=== PATIENT | female | born 1960 | race Caucasian/White ===

== ENCOUNTER → 2016-05-08 | Outpatient (CLI) | payer OTHER ==
[~2016-05-08] MED LIST: ALLEGRA30 MG PO; ASPIRIN E.C. 8181 MG PO; B COMPLEX1 TA2 PO; CEPHALEXIN500 M1 PO; CINNAMON500 MG; CO Q-1030 M1; DUO-KAPS1 CAP PO; LEVOTHYROXIN0.075 MG PO; LEVOTHYROXINE0.05 MG PO; NASONEX SPRAY; NATURAL E400 IU PO; NORCO 325 MG-51 TAB PO; SINGULAIR10 MG PO
== END ==
LOC: LAB 16:36
DX: E03.9 Hypothyroidism, unspecified (principal)

== ENCOUNTER → 2016-05-20 | Outpatient (CLI) | payer OTHER | LOC: MAMMO 15:52 | DX: Z12.31 Encounter for screening mammogram for malignant neoplasm of breast (principal) | CPT/HCPCS: G0202 ==

== ENCOUNTER → 2017-04-16 | Outpatient (CLI) | payer OTHER ==
[2015-03-06 18:20] VITALS: BP 162/88
[2017-04-16 08:18] LABS: HEMATOCRIT 46.6 % (37.0-47.0); HEMOGLOBIN 15.6 g/dL (12.5-16.0); MEAN PLATELET VOLUME 10.7 fl (7.4-10.4); RED BLOOD COUNT 5.25 M/mm3 (4.10-5.30); RED CELL DISTRIBUTION WIDTH 14.1 % (11.5-14.5); WHITE BLOOD COUNT 6.1 K/mm3 (4.8-10.8)
[2017-04-16 08:32] LABS: ALBUMIN 4.3 g/dL (3.5-5.0); BUN/CREATININE RATIO 23.2 (6.0-26.0); CALCIUM 9.9 mg/dL (8.4-10.2); POTASSIUM 3.9 mmol/L (3.6-5.0); TOTAL BILIRUBIN 0.8 mg/dL (0.2-1.3); TOTAL PROTEIN 7.5 g/dL (6.3-8.2)
== END ==
LOC: LAB 08:05
PROVIDERS: Family Medicine
DX: E66.9 Obesity, unspecified (principal)

== ENCOUNTER → 2017-04-29 | Outpatient (CLI) | payer OTHER ==
[2015-03-06 18:20] VITALS: BP 162/88
== END ==
LOC: MAMMO 13:36 → RAD 13:45
DX: Z12.31 Encounter for screening mammogram for malignant neoplasm of breast (principal)

== ENCOUNTER → 2018-03-30 | Outpatient (CLI) | payer OTHER ==
[2015-03-06 18:20] VITALS: BP 162/88
[2018-03-30 17:09] LABS: EOS # 0.3 (0.04-0.40); HEMATOCRIT 44.6 % (37.0-47.0); HEMOGLOBIN 14.9 g/dL (12.5-16.0); MEAN CELL VOLUME 87 fl (78-100); MEAN CORPUSCULAR HEMOGLOBIN 29 pg (27-31); MEAN CORPUSCULAR HGB CONC 33 g/dL (33-37); MEAN PLATELET VOLUME 10.6 fl (7.4-10.4); MONO # 0.6 (0.20-0.80); NEU # 3.7 (1.40-6.50); PLATELET COUNT 203 K/mm3 (130-400); RED BLOOD COUNT 5.13 M/mm3 (4.10-5.30); RED CELL DISTRIBUTION WIDTH 13.9 % (11.5-14.5); WHITE BLOOD COUNT 6.6 K/mm3 (4.8-10.8)
[2018-03-30 19:35] LABS: ALBUMIN 4.8 g/dL (3.5-5.0); CALCIUM 9.5 mg/dL (8.4-10.2); POTASSIUM 3.3 mmol/L (3.6-5.0); TOTAL BILIRUBIN 0.4 mg/dL (0.2-1.3); TOTAL PROTEIN 7.7 g/dL (6.3-8.2)
== END ==
LOC: LAB 16:37
PROVIDERS: Family Medicine
DX: Z01.419 Encounter for gynecological examination (general) (routine) without abnormal findings (principal); E07.9 Disorder of thyroid, unspecified

== ENCOUNTER → 2018-06-04 | Outpatient (CLI) | payer OTHER ==
[2015-03-06 18:20] VITALS: BP 162/88
== END ==
LOC: LAB 12:54
DX: R30.0 Dysuria (principal)

== ENCOUNTER → 2018-11-03 | Outpatient (CLI) | payer OTHER ==
[2015-03-06 18:20] VITALS: BP 162/88
== END ==
LOC: MAMMO 12:47
DX: Z12.31 Encounter for screening mammogram for malignant neoplasm of breast (principal)

== ENCOUNTER → 2019-10-03 | Outpatient (CLI) | payer OTHER ==
[2015-03-06 18:20] VITALS: BP 162/88
== END ==
LOC: RAD 14:46
DX: R05 Cough (principal); R30.0 Dysuria

== ENCOUNTER → 2019-10-05 | Outpatient (CLI) | payer OTHER ==
[2015-03-06 18:20] VITALS: BP 162/88
== END ==
LOC: LAB 10:18
DX: U07.1 COVID-19 (principal); M79.10 Myalgia, unspecified site

== ENCOUNTER → 2019-11-29 | Outpatient (CLI) | payer OTHER ==
[2015-03-06 18:20] VITALS: BP 162/88
[2019-12-01 06:19] LABS: ALTERNARIA TENUIS CNT <0.10 kU/L (()); ASPERGILLUS FUMIGATUS AL COUNT <0.10 kU/L (()); AUREOBASIDIUM PULLULANS CNT <0.10 kU/L (()); BAKERS YEAST ALLERGEN COUNT <0.10 kU/L (()); CANDIDA ALBICANS ALLERGN COUNT <0.10 kU/L (()); CLADOSPORIUM ALLERGEN COUNT <0.10 kU/L (()); CORN ALLERGEN COUNT <0.10 kU/L (()); EGG WHITE ALLERGEN COUNT <0.10 kU/L (()); EPICOCCUM PURPURANCEN AL COUNT <0.10 kU/L (()); FUSARIUM MONILIFORME ALL COUNT <0.10 kU/L (()); MILK ALLERGEN COUNT <0.10 kU/L (()); MUCOR RACEMOSUS ALLERGEN COUNT <0.10 kU/L (()); ORANGE ALLERGEN COUNT <0.10 kU/L (()); PEANUT ALLERGEN COUNT <0.10 kU/L (()); PENICILLIUM NOTATUM ALLR COUNT <0.10 kU/L (()); PHOMA BETAE ALLERGEN COUNT <0.10 kU/L (()); RICE ALLERGEN COUNT <0.10 kU/L (()); SOYBEAN ALLERGEN COUNT <0.10 kU/L (()); STEMPHYLIUM BOTRYOSUM AL COUNT <0.10 kU/L (()); STRAWBERRY ALLERGEN COUNT <0.10 kU/L (()); TOMATO ALLERGEN COUNT <0.10 kU/L (()); WHEAT ALLERGEN COUNT <0.10 kU/L (())
== END ==
LOC: LAB 14:28
PROVIDERS: Family Medicine
DX: T78.49XD Other allergy, subsequent encounter (principal)

== ENCOUNTER → 2019-11-30 | Outpatient (CLI) | payer OTHER ==
[2015-03-06 18:20] VITALS: BP 162/88
== END ==
LOC: MAMMO 13:38
DX: Z12.31 Encounter for screening mammogram for malignant neoplasm of breast (principal)

== ENCOUNTER → 2019-12-21 | Outpatient (CLI) | payer OTHER ==
[2015-03-06 18:20] VITALS: BP 162/88
[2019-12-21 17:18] LABS: EOS # 0.3 (0.04-0.40); EOS % 4.1 % (1.0-5.0); HEMATOCRIT 46.4 % (37.0-47.0); HEMOGLOBIN 15.1 g/dL (12.5-16.0); LYMPH# 1.9 (1.50-4.00); MEAN CELL VOLUME 90 fl (78-100); MEAN CORPUSCULAR HEMOGLOBIN 29 pg (27-31); MEAN CORPUSCULAR HGB CONC 33 g/dL (33-37); MEAN PLATELET VOLUME 10.3 fl (7.4-10.4); MONO # 0.8 (0.20-0.80); NEU # 4.3 (1.40-6.50); PLATELET COUNT 213 K/mm3 (130-400); RED BLOOD COUNT 5.15 M/mm3 (4.10-5.30); RED CELL DISTRIBUTION WIDTH 14.4 % (11.5-14.5); WHITE BLOOD COUNT 7.3 K/mm3 (4.8-10.8)
[2019-12-21 17:23] LABS: POTASSIUM 3.8 mmol/L (3.5-5.1)
[2019-12-21 17:24] LABS: CALCIUM 9.6 mg/dL (8.3-10.5)
== END ==
LOC: LAB 17:02
PROVIDERS: Internal Medicine
DX: Z01.419 Encounter for gynecological examination (general) (routine) without abnormal findings (principal); E78.5 Hyperlipidemia, unspecified; E07.9 Disorder of thyroid, unspecified; I10 Essential (primary) hypertension; R73.9 Hyperglycemia, unspecified

== ENCOUNTER → 2020-10-30 | Outpatient (CLI) | payer OTHER ==
[2020-10-30 18:13] LABS: BASO # 0.03 (0.02-0.10); EOS # 0.49 (0.04-0.40); EOS % 6.6 % (1.0-5.0); HEMATOCRIT 44.5 % (37.0-47.0); HEMOGLOBIN 14.5 g/dL (12.5-16.0); LYMPH# 1.37 (1.50-4.00); MEAN CELL VOLUME 88 fl (78-100); MEAN CORPUSCULAR HEMOGLOBIN 29 pg (27-31); MEAN CORPUSCULAR HGB CONC 33 g/dL (33-37); MEAN PLATELET VOLUME 10.1 fl (7.4-10.4); MONO # 0.63 (0.20-0.80); NEU # 4.85 (1.40-6.50); PLATELET COUNT 229 K/mm3 (130-400); RED BLOOD COUNT 5.05 M/mm3 (4.10-5.30); RED CELL DISTRIBUTION WIDTH 14.2 % (11.5-14.5); WHITE BLOOD COUNT 7.4 K/mm3 (4.8-10.8)
[2020-10-30 18:22] LABS: ALBUMIN 4.5 g/dL (3.5-5.0)
[2020-10-30 18:25] LABS: TOTAL PROTEIN 7.5 g/dL (6.4-8.3)
[2020-10-30 18:27] LABS: TOTAL BILIRUBIN 0.4 mg/dL (0.2-1.2)
== END ==
LOC: LAB 17:58
PROVIDERS: Nurse Practitioner
DX: M79.671 Pain in right foot (principal); R60.0 Localized edema

== ENCOUNTER → 2020-11-01 | Outpatient (CLI) | payer OTHER | LOC: RAD 14:22 | DX: M19.071 Primary osteoarthritis, right ankle and foot (principal) ==

== ENCOUNTER → 2020-11-08 | Outpatient (CLI) | payer OTHER | LOC: RAD 08:54 | DX: R60.0 Localized edema (principal) ==

== ENCOUNTER → 2021-02-08 | Outpatient (CLI) | payer OTHER ==
[2021-02-08 16:06] LABS: BASO # 0.04 K/mm3 (0.02-0.10); EOS # 0.38 K/mm3 (0.04-0.40); EOS % 4.6 % (1.0-5.0); HEMATOCRIT 49.6 % (37.0-47.0); LYMPH# 1.34 K/mm3 (1.50-4.00); MEAN CELL VOLUME 87 fl (78-100); MEAN CORPUSCULAR HEMOGLOBIN 28 pg (27-31); MEAN CORPUSCULAR HGB CONC 32 g/dL (33-37); MONO # 0.66 K/mm3 (0.20-0.80); NEU # 5.92 K/mm3 (1.40-6.50); PLATELET COUNT 208 K/mm3 (130-400); RED BLOOD COUNT 5.72 M/mm3 (4.10-5.30); RED CELL DISTRIBUTION WIDTH 15.1 % (11.5-14.5); WHITE BLOOD COUNT 8.4 K/mm3 (4.8-10.8)
[2021-02-08 16:13] LABS: ALBUMIN 4.4 g/dL (3.5-5.0); POTASSIUM 3.5 mmol/L (3.5-5.1)
[2021-02-08 16:14] LABS: CALCIUM 10.4 mg/dL (8.3-10.5)
[2021-02-08 16:15] LABS: TOTAL PROTEIN 7.6 g/dL (6.4-8.3)
[2021-02-08 16:17] LABS: TOTAL BILIRUBIN 0.4 mg/dL (0.2-1.2)
[2021-02-08 16:19] LABS: URINE APPEARANCE CLEAR; URINE BILIRUBIN NEGATIVE (NEGATIVE); URINE BLOOD NEGATIVE (NEGATIVE); URINE COLOR YELLOW; URINE GLUCOSE NEGATIVE (NEGATIVE); URINE KETONE NEGATIVE (NEGATIVE); URINE LEUKOCYTE ESTERASE TRACE (NEGATIVE); URINE NITRATE NEGATIVE (NEGATIVE); URINE PROTEIN(semi-quant) TRACE mg/dL (NEGATIVE); URINE UROBILINOGEN NORMAL (NORMAL)
== END ==
LOC: LAB 15:41
PROVIDERS: Physician Assistant
DX: R10.12 Left upper quadrant pain (principal); R93.5 Abnormal findings on diagnostic imaging of other abdominal regions, including retroperitoneum

== ENCOUNTER → 2021-02-15 | Outpatient (CLI) | payer OTHER | LOC: RAD 08:00 | DX: M89.9 Disorder of bone, unspecified (principal); R59.9 Enlarged lymph nodes, unspecified; I31.3 Pericardial effusion (noninflammatory); J90 Pleural effusion, not elsewhere classified; N28.9 Disorder of kidney and ureter, unspecified | CPT/HCPCS: Q9967 ==

== ENCOUNTER → 2021-04-03 | Outpatient (CLI) | payer OTHER ==
[2021-04-03 16:51] LABS: BASO # 0.03 K/mm3 (0.02-0.10); EOS # 0.33 K/mm3 (0.04-0.40); EOS % 4.1 % (1.0-5.0); HEMATOCRIT 44.9 % (37.0-47.0); HEMOGLOBIN 14.9 g/dL (12.5-16.0); LYMPH# 1.44 K/mm3 (1.50-4.00); MEAN CELL VOLUME 89 fl (78-100); MEAN CORPUSCULAR HEMOGLOBIN 30 pg (27-31); MEAN CORPUSCULAR HGB CONC 33 g/dL (33-37); MEAN PLATELET VOLUME 10.4 fl (7.4-10.4); MONO # 0.67 K/mm3 (0.20-0.80); NEU # 5.57 K/mm3 (1.40-6.50); PLATELET COUNT 220 K/mm3 (130-400); RED BLOOD COUNT 5.03 M/mm3 (4.10-5.30); RED CELL DISTRIBUTION WIDTH 13.9 % (11.5-14.5); WHITE BLOOD COUNT 8.1 K/mm3 (4.8-10.8)
[2021-04-03 16:55] LABS: ALBUMIN 4.7 g/dL (3.5-5.0); POTASSIUM 3.6 mmol/L (3.5-5.1)
[2021-04-03 16:56] LABS: CALCIUM 9.8 mg/dL (8.3-10.5)
[2021-04-03 16:57] LABS: TOTAL PROTEIN 7.6 g/dL (6.4-8.3)
[2021-04-03 16:59] LABS: TOTAL BILIRUBIN 0.3 mg/dL (0.2-1.2)
== END ==
LOC: LAB 16:28
PROVIDERS: Internal Medicine
DX: C34.11 Malignant neoplasm of upper lobe, right bronchus or lung (principal)

== ENCOUNTER → 2021-04-11 | Outpatient (CLI) | payer OTHER | LOC: VAS 09:55 → RAD 10:00 | DX: C34.11 Malignant neoplasm of upper lobe, right bronchus or lung (principal) ==

== ENCOUNTER → 2021-04-18 | Outpatient (CLI) | payer OTHER ==
[2021-04-18 10:40] LABS: HEMATOCRIT 46.1 % (37.0-47.0); HEMOGLOBIN 15.2 g/dL (12.5-16.0); MEAN CELL VOLUME 89 fl (78-100); MEAN CORPUSCULAR HEMOGLOBIN 30 pg (27-31); MEAN CORPUSCULAR HGB CONC 33 g/dL (33-37); MEAN PLATELET VOLUME 11.3 fl (7.4-10.4); PLATELET COUNT 146 K/mm3 (130-400); RED BLOOD COUNT 5.16 M/mm3 (4.10-5.30); RED CELL DISTRIBUTION WIDTH 13.7 % (11.5-14.5); WHITE BLOOD COUNT 6.7 K/mm3 (4.8-10.8)
[2021-04-18 11:09] LABS: BAND 3 % (0-10); LYMPHOCYTE 9 % (20-51); MONOCYTE 8 % (3-10); NEUTROPHILS 68 % (42-75)
== END ==
LOC: LAB 10:32
PROVIDERS: Radiology Radiation Oncology
DX: Z51.0 Encounter for antineoplastic radiation therapy (principal); C34.11 Malignant neoplasm of upper lobe, right bronchus or lung; C79.51 Secondary malignant neoplasm of bone; C71.1 Malignant neoplasm of frontal lobe

== ENCOUNTER → 2021-04-30 | Outpatient (CLI) | payer OTHER ==
[2021-04-30 17:07] LABS: HEMOGLOBIN 14.4 g/dL (12.5-16.0); MEAN CELL VOLUME 89 fl (78-100); MEAN CORPUSCULAR HEMOGLOBIN 29 pg (27-31); MEAN CORPUSCULAR HGB CONC 33 g/dL (33-37); MEAN PLATELET VOLUME 9.9 fl (7.4-10.4); PLATELET COUNT 134 K/mm3 (130-400); RED BLOOD COUNT 4.92 M/mm3 (4.10-5.30); RED CELL DISTRIBUTION WIDTH 13.7 % (11.5-14.5); WHITE BLOOD COUNT 6.1 K/mm3 (4.8-10.8)
[2021-04-30 17:16] LABS: ALBUMIN 4.2 g/dL (3.5-5.0)
[2021-04-30 17:17] LABS: POTASSIUM 4.1 mmol/L (3.5-5.1)
[2021-04-30 17:18] LABS: CALCIUM 9.6 mg/dL (8.3-10.5)
[2021-04-30 17:19] LABS: TOTAL PROTEIN 7.3 g/dL (6.4-8.3)
[2021-04-30 17:21] LABS: TOTAL BILIRUBIN 0.2 mg/dL (0.2-1.2)
[2021-04-30 17:39] LABS: NEUTROPHILS 69 % (42-75)
[2021-04-30 17:40] LABS: LYMPHOCYTE 10 % (20-51); MONOCYTE 13 % (3-10)
== END ==
LOC: LAB 15:41
PROVIDERS: Internal Medicine
DX: C34.90 Malignant neoplasm of unspecified part of unspecified bronchus or lung (principal)

== ENCOUNTER → 2021-05-09 | Outpatient (CLI) | payer OTHER | LOC: RAD 15:57 | DX: C34.11 Malignant neoplasm of upper lobe, right bronchus or lung (principal); C79.51 Secondary malignant neoplasm of bone; C71.1 Malignant neoplasm of frontal lobe ==

== ENCOUNTER → 2021-05-17 | Outpatient (CLI) | payer OTHER ==
[2021-05-17 16:22] LABS: BASO # 0.04 K/mm3 (0.02-0.10); EOS # 0.51 K/mm3 (0.04-0.40); EOS % 9.7 % (1.0-5.0); HEMATOCRIT 44.4 % (37.0-47.0); HEMOGLOBIN 14.6 g/dL (12.5-16.0); LYMPH# 0.82 K/mm3 (1.50-4.00); MEAN CELL VOLUME 89 fl (78-100); MEAN CORPUSCULAR HEMOGLOBIN 29 pg (27-31); MEAN CORPUSCULAR HGB CONC 33 g/dL (33-37); MEAN PLATELET VOLUME 10.4 fl (7.4-10.4); MONO # 0.59 K/mm3 (0.20-0.80); NEU # 3.29 K/mm3 (1.40-6.50); PLATELET COUNT 165 K/mm3 (130-400); RED BLOOD COUNT 4.99 M/mm3 (4.10-5.30); RED CELL DISTRIBUTION WIDTH 13.7 % (11.5-14.5); WHITE BLOOD COUNT 5.3 K/mm3 (4.8-10.8)
[2021-05-17 16:35] LABS: ALBUMIN 4.4 g/dL (3.5-5.0); POTASSIUM 3.8 mmol/L (3.5-5.1)
[2021-05-17 16:36] LABS: CALCIUM 9.8 mg/dL (8.3-10.5)
[2021-05-17 16:38] LABS: TOTAL PROTEIN 7.3 g/dL (6.4-8.3)
[2021-05-17 16:39] LABS: TOTAL BILIRUBIN 0.3 mg/dL (0.2-1.2)
== END ==
LOC: LAB 16:04
PROVIDERS: Internal Medicine
DX: C34.90 Malignant neoplasm of unspecified part of unspecified bronchus or lung (principal)

== ENCOUNTER → 2021-05-31 | Outpatient (CLI) | payer OTHER ==
[2021-05-31 19:32] LABS: BASO # 0.03 K/mm3 (0.02-0.10); EOS # 0.34 K/mm3 (0.04-0.40); EOS % 6.9 % (1.0-5.0); HEMATOCRIT 45.6 % (37.0-47.0); HEMOGLOBIN 14.9 g/dL (12.5-16.0); LYMPH# 0.66 K/mm3 (1.50-4.00); MEAN CELL VOLUME 88 fl (78-100); MEAN CORPUSCULAR HEMOGLOBIN 29 pg (27-31); MEAN CORPUSCULAR HGB CONC 33 g/dL (33-37); MEAN PLATELET VOLUME 11.3 fl (7.4-10.4); MONO # 0.62 K/mm3 (0.20-0.80); NEU # 3.27 K/mm3 (1.40-6.50); PLATELET COUNT 153 K/mm3 (130-400); RED BLOOD COUNT 5.17 M/mm3 (4.10-5.30); RED CELL DISTRIBUTION WIDTH 13.8 % (11.5-14.5); WHITE BLOOD COUNT 4.9 K/mm3 (4.8-10.8)
[2021-05-31 19:38] LABS: ALBUMIN 4.4 g/dL (3.5-5.0); POTASSIUM 3.8 mmol/L (3.5-5.1)
[2021-05-31 19:40] LABS: CALCIUM 9.5 mg/dL (8.3-10.5)
[2021-05-31 19:41] LABS: TOTAL PROTEIN 7.8 g/dL (6.4-8.3)
[2021-05-31 19:43] LABS: TOTAL BILIRUBIN 0.2 mg/dL (0.2-1.2)
== END ==
LOC: LAB 18:46
PROVIDERS: Internal Medicine
DX: C34.11 Malignant neoplasm of upper lobe, right bronchus or lung (principal)

== ENCOUNTER → 2021-06-29 | Outpatient (CLI) | payer OTHER ==
[2021-06-29 12:06] LABS: BASO # 0.03 K/mm3 (0.02-0.10); EOS % 4.8 % (1.0-5.0); HEMATOCRIT 46.8 % (37.0-47.0); HEMOGLOBIN 15.5 g/dL (12.5-16.0); LYMPH# 0.68 K/mm3 (1.50-4.00); MEAN CELL VOLUME 88 fl (78-100); MEAN CORPUSCULAR HEMOGLOBIN 29 pg (27-31); MEAN CORPUSCULAR HGB CONC 33 g/dL (33-37); MEAN PLATELET VOLUME 11.1 fl (7.4-10.4); MONO # 0.64 K/mm3 (0.20-0.80); NEU # 4.56 K/mm3 (1.40-6.50); PLATELET COUNT 163 K/mm3 (130-400); RED BLOOD COUNT 5.32 M/mm3 (4.10-5.30); RED CELL DISTRIBUTION WIDTH 13.9 % (11.5-14.5); WHITE BLOOD COUNT 6.2 K/mm3 (4.8-10.8)
[2021-06-29 12:12] LABS: ALBUMIN 4.4 g/dL (3.5-5.0)
[2021-06-29 12:13] LABS: POTASSIUM 3.6 mmol/L (3.5-5.1)
[2021-06-29 12:14] LABS: CALCIUM 9.3 mg/dL (8.3-10.5)
[2021-06-29 12:15] LABS: TOTAL PROTEIN 7.4 g/dL (6.4-8.3)
[2021-06-29 12:17] LABS: TOTAL BILIRUBIN 0.4 mg/dL (0.2-1.2)
== END ==
LOC: LAB 11:07
PROVIDERS: Internal Medicine
DX: C34.11 Malignant neoplasm of upper lobe, right bronchus or lung (principal)

== ENCOUNTER → 2021-07-27 | Outpatient (CLI) | payer OTHER ==
[2021-07-27 08:58] LABS: BASO # 0.02 K/mm3 (0.02-0.10); EOS # 0.28 K/mm3 (0.04-0.40); EOS % 5.6 % (1.0-5.0); HEMATOCRIT 48.1 % (37.0-47.0); HEMOGLOBIN 15.5 g/dL (12.5-16.0); LYMPH# 0.65 K/mm3 (1.50-4.00); MEAN CELL VOLUME 90 fl (78-100); MEAN CORPUSCULAR HEMOGLOBIN 29 pg (27-31); MEAN CORPUSCULAR HGB CONC 32 g/dL (33-37); MEAN PLATELET VOLUME 11.5 fl (7.4-10.4); MONO # 0.64 K/mm3 (0.20-0.80); NEU # 3.36 K/mm3 (1.40-6.50); PLATELET COUNT 138 K/mm3 (130-400); RED BLOOD COUNT 5.36 M/mm3 (4.10-5.30); RED CELL DISTRIBUTION WIDTH 14.1 % (11.5-14.5)
[2021-07-27 09:06] LABS: ALBUMIN 4.3 g/dL (3.5-5.0)
[2021-07-27 09:07] LABS: POTASSIUM 4.4 mmol/L (3.5-5.1)
[2021-07-27 09:08] LABS: CALCIUM 9.7 mg/dL (8.3-10.5)
[2021-07-27 09:09] LABS: TOTAL PROTEIN 6.7 g/dL (6.4-8.3)
[2021-07-27 09:11] LABS: TOTAL BILIRUBIN 0.4 mg/dL (0.2-1.2)
== END ==
LOC: LAB 08:08
PROVIDERS: Internal Medicine
DX: C34.11 Malignant neoplasm of upper lobe, right bronchus or lung (principal)

== ENCOUNTER → 2021-08-19 | Outpatient (CLI) | payer OTHER | LOC: RAD 07:33 | DX: C34.11 Malignant neoplasm of upper lobe, right bronchus or lung (principal) | CPT/HCPCS: A9585 ==

== ENCOUNTER → 2021-08-23 | Outpatient (CLI) | payer OTHER ==
[2021-08-23 18:46] LABS: BASO # 0.03 K/mm3 (0.02-0.10); EOS # 0.25 K/mm3 (0.04-0.40); HEMATOCRIT 45.9 % (37.0-47.0); HEMOGLOBIN 14.9 g/dL (12.5-16.0); LYMPH# 0.68 K/mm3 (1.50-4.00); MEAN CELL VOLUME 88 fl (78-100); MEAN CORPUSCULAR HEMOGLOBIN 29 pg (27-31); MEAN CORPUSCULAR HGB CONC 33 g/dL (33-37); MEAN PLATELET VOLUME 11.7 fl (7.4-10.4); MONO # 0.62 K/mm3 (0.20-0.80); NEU # 3.38 K/mm3 (1.40-6.50); PLATELET COUNT 178 K/mm3 (130-400); RED BLOOD COUNT 5.19 M/mm3 (4.10-5.30); RED CELL DISTRIBUTION WIDTH 14.1 % (11.5-14.5)
[2021-08-23 18:56] LABS: ALBUMIN 4.8 g/dL (3.5-5.0); POTASSIUM 3.8 mmol/L (3.5-5.1)
[2021-08-23 18:57] LABS: CALCIUM 9.8 mg/dL (8.3-10.5)
[2021-08-23 18:59] LABS: TOTAL PROTEIN 7.5 g/dL (6.4-8.3)
[2021-08-23 19:00] LABS: TOTAL BILIRUBIN 0.3 mg/dL (0.2-1.2)
== END ==
LOC: LAB 17:29
PROVIDERS: Internal Medicine
DX: C34.11 Malignant neoplasm of upper lobe, right bronchus or lung (principal)

== ENCOUNTER → 2021-09-20 | Outpatient (CLI) | payer OTHER ==
[2021-09-20 09:24] LABS: BASO # 0.03 K/mm3 (0.02-0.10); EOS # 0.25 K/mm3 (0.04-0.40); EOS % 5.7 % (1.0-5.0); HEMATOCRIT 47.6 % (37.0-47.0); HEMOGLOBIN 15.2 g/dL (12.5-16.0); LYMPH# 0.74 K/mm3 (1.50-4.00); MEAN CELL VOLUME 89 fl (78-100); MEAN CORPUSCULAR HEMOGLOBIN 28 pg (27-31); MEAN CORPUSCULAR HGB CONC 32 g/dL (33-37); MEAN PLATELET VOLUME 11.6 fl (7.4-10.4); MONO # 0.52 K/mm3 (0.20-0.80); NEU # 2.84 K/mm3 (1.40-6.50); PLATELET COUNT 144 K/mm3 (130-400); RED BLOOD COUNT 5.35 M/mm3 (4.10-5.30); RED CELL DISTRIBUTION WIDTH 14.1 % (11.5-14.5); WHITE BLOOD COUNT 4.4 K/mm3 (4.8-10.8)
[2021-09-20 09:25] LABS: ALBUMIN 4.2 g/dL (3.5-5.0); POTASSIUM 4.2 mmol/L (3.5-5.1)
[2021-09-20 09:27] LABS: CALCIUM 9.5 mg/dL (8.3-10.5)
[2021-09-20 09:28] LABS: TOTAL PROTEIN 6.8 g/dL (6.4-8.3)
[2021-09-20 09:30] LABS: TOTAL BILIRUBIN 0.5 mg/dL (0.2-1.2)
== END ==
LOC: LAB 09:11
PROVIDERS: Internal Medicine
DX: C34.11 Malignant neoplasm of upper lobe, right bronchus or lung (principal)

== ENCOUNTER → 2021-10-18 | Outpatient (CLI) | payer OTHER ==
[2021-10-18 08:53] LABS: HEMATOCRIT 45.3 % (37.0-47.0); HEMOGLOBIN 14.8 g/dL (12.5-16.0); MEAN CELL VOLUME 88 fl (78-100); MEAN CORPUSCULAR HEMOGLOBIN 29 pg (27-31); MEAN CORPUSCULAR HGB CONC 33 g/dL (33-37); MEAN PLATELET VOLUME 9.8 fl (7.4-10.4); PLATELET COUNT 122 K/mm3 (130-400); RED BLOOD COUNT 5.18 M/mm3 (4.10-5.30); RED CELL DISTRIBUTION WIDTH 14.2 % (11.5-14.5); WHITE BLOOD COUNT 3.6 K/mm3 (4.8-10.8)
[2021-10-18 09:18] LABS: ALBUMIN 4.4 g/dL (3.5-5.0)
[2021-10-18 09:20] LABS: TOTAL PROTEIN 6.8 g/dL (6.4-8.3)
[2021-10-18 09:22] LABS: TOTAL BILIRUBIN 0.5 mg/dL (0.2-1.2)
[2021-10-18 09:55] LABS: LYMPHOCYTE 13 % (20-51); MONOCYTE 11 % (3-10); NEUTROPHILS 68 % (42-75)
== END ==
LOC: LAB 08:28
PROVIDERS: Internal Medicine
DX: C34.90 Malignant neoplasm of unspecified part of unspecified bronchus or lung (principal); Z00.00 Encounter for general adult medical examination without abnormal findings; E78.5 Hyperlipidemia, unspecified; E55.9 Vitamin D deficiency, unspecified; E07.9 Disorder of thyroid, unspecified; T78.49XS Other allergy, sequela

== ENCOUNTER → 2021-11-11 | Outpatient (CLI) | payer OTHER ==
[2021-11-11 11:16] LABS: HEMATOCRIT 46.9 % (37.0-47.0); HEMOGLOBIN 15.5 g/dL (12.5-16.0); MEAN CELL VOLUME 87 fl (78-100); MEAN CORPUSCULAR HEMOGLOBIN 29 pg (27-31); MEAN CORPUSCULAR HGB CONC 33 g/dL (33-37); MEAN PLATELET VOLUME 10.8 fl (7.4-10.4); PLATELET COUNT 133 K/mm3 (130-400); RED BLOOD COUNT 5.41 M/mm3 (4.10-5.30); WHITE BLOOD COUNT 4.5 K/mm3 (4.8-10.8)
[2021-11-11 11:21] LABS: ALBUMIN 4.4 g/dL (3.5-5.0); POTASSIUM 4.1 mmol/L (3.5-5.1)
[2021-11-11 11:22] LABS: CALCIUM 10.3 mg/dL (8.3-10.5)
[2021-11-11 11:23] LABS: TOTAL PROTEIN 6.8 g/dL (6.4-8.3)
[2021-11-11 11:25] LABS: TOTAL BILIRUBIN 0.6 mg/dL (0.2-1.2)
[2021-11-11 12:01] LABS: BAND 1 % (0-10); LYMPHOCYTE 11 % (20-51); MONOCYTE 12 % (3-10); NEUTROPHILS 69 % (42-75)
== END ==
LOC: RAD 08:45 → LAB 09:50 → RAD 09:50
PROVIDERS: Internal Medicine
DX: C34.11 Malignant neoplasm of upper lobe, right bronchus or lung (principal)
CPT/HCPCS: A9575

== ENCOUNTER → 2021-12-16 | Outpatient (CLI) | payer OTHER ==
[2021-12-16 16:38] LABS: BASO # 0.02 K/mm3 (0.02-0.10); EOS # 0.26 K/mm3 (0.04-0.40); EOS % 5.5 % (1.0-5.0); HEMATOCRIT 44.8 % (37.0-47.0); HEMOGLOBIN 14.6 g/dL (12.5-16.0); LYMPH# 0.69 K/mm3 (1.50-4.00); MEAN CELL VOLUME 88 fl (78-100); MEAN CORPUSCULAR HEMOGLOBIN 29 pg (27-31); MEAN CORPUSCULAR HGB CONC 33 g/dL (33-37); MEAN PLATELET VOLUME 11.1 fl (7.4-10.4); MONO # 0.72 K/mm3 (0.20-0.80); NEU # 3.04 K/mm3 (1.40-6.50); PLATELET COUNT 145 K/mm3 (130-400); RED BLOOD COUNT 5.07 M/mm3 (4.10-5.30); WHITE BLOOD COUNT 4.7 K/mm3 (4.8-10.8)
[2021-12-16 16:44] LABS: ALBUMIN 4.4 g/dL (3.4-4.8); POTASSIUM 3.8 mmol/L (3.5-5.1)
[2021-12-16 16:46] LABS: CALCIUM 9.7 mg/dL (8.3-10.5)
[2021-12-16 16:49] LABS: TOTAL BILIRUBIN 0.3 mg/dL (0.2-1.2)
== END ==
LOC: LAB 16:13
PROVIDERS: Internal Medicine
DX: C34.11 Malignant neoplasm of upper lobe, right bronchus or lung (principal)

== ENCOUNTER → 2022-01-13 | Outpatient (CLI) | payer OTHER ==
[2022-01-13 16:27] LABS: BASO # 0.02 K/mm3 (0.02-0.10); EOS # 0.25 K/mm3 (0.04-0.40); EOS % 4.9 % (1.0-5.0); HEMATOCRIT 42.9 % (37.0-47.0); LYMPH# 0.73 K/mm3 (1.50-4.00); MEAN CELL VOLUME 87 fl (78-100); MEAN CORPUSCULAR HEMOGLOBIN 29 pg (27-31); MEAN CORPUSCULAR HGB CONC 33 g/dL (33-37); MEAN PLATELET VOLUME 10.4 fl (7.4-10.4); MONO # 0.65 K/mm3 (0.20-0.80); PLATELET COUNT 146 K/mm3 (130-400); RED BLOOD COUNT 4.92 M/mm3 (4.10-5.30); RED CELL DISTRIBUTION WIDTH 14.4 % (11.5-14.5); WHITE BLOOD COUNT 5.1 K/mm3 (4.8-10.8)
[2022-01-13 16:32] LABS: ALBUMIN 4.5 g/dL (3.4-4.8); POTASSIUM 3.7 mmol/L (3.5-5.1)
[2022-01-13 16:34] LABS: CALCIUM 9.4 mg/dL (8.3-10.5)
[2022-01-13 16:35] LABS: TOTAL PROTEIN 7.1 g/dL (6.2-8.1)
[2022-01-13 16:37] LABS: TOTAL BILIRUBIN 0.2 mg/dL (0.2-1.2)
== END ==
LOC: LAB 16:10
PROVIDERS: Internal Medicine
DX: C34.90 Malignant neoplasm of unspecified part of unspecified bronchus or lung (principal)

== ENCOUNTER → 2022-03-03 | Outpatient (CLI) | payer BC | LOC: RAD 11:34 | DX: R07.81 Pleurodynia (principal); Z85.9 Personal history of malignant neoplasm, unspecified ==

== ENCOUNTER → 2022-06-27 | Outpatient (CLI) | payer BC ==
[2022-06-27 11:36] LABS: HEMATOCRIT 45.3 % (37.0-47.0); HEMOGLOBIN 14.8 g/dL (12.5-16.0); MEAN CELL VOLUME 88 fl (78-100); MEAN CORPUSCULAR HEMOGLOBIN 29 pg (27-31); MEAN CORPUSCULAR HGB CONC 33 g/dL (33-37); MEAN PLATELET VOLUME 10.5 fl (7.4-10.4); PLATELET COUNT 144 K/mm3 (130-400); RED BLOOD COUNT 5.16 M/mm3 (4.10-5.30); WHITE BLOOD COUNT 4.7 K/mm3 (4.8-10.8)
[2022-06-27 11:48] LABS: ALBUMIN 4.4 g/dL (3.4-4.8)
[2022-06-27 11:49] LABS: POTASSIUM 3.8 mmol/L (3.5-5.1)
[2022-06-27 11:51] LABS: TOTAL PROTEIN 7.7 g/dL (6.2-8.1)
[2022-06-27 11:53] LABS: TOTAL BILIRUBIN 0.3 mg/dL (0.2-1.2)
[2022-06-27 13:20] LABS: LYMPHOCYTE 14 % (20-51); MONOCYTE 14 % (3-10); NEUTROPHILS 72 % (42-75)
== END ==
LOC: LAB 11:14
PROVIDERS: Internal Medicine
DX: C34.11 Malignant neoplasm of upper lobe, right bronchus or lung (principal)

== ENCOUNTER → 2022-08-08 | Outpatient (CLI) | payer BC ==
[2022-08-08 15:25] LABS: BASO # 0.03 K/mm3 (0.02-0.10); EOS # 0.34 K/mm3 (0.04-0.40); EOS % 7.1 % (1.0-5.0); HEMATOCRIT 44.8 % (37.0-47.0); HEMOGLOBIN 14.7 g/dL (12.5-16.0); LYMPH# 0.67 K/mm3 (1.50-4.00); MEAN CELL VOLUME 87 fl (78-100); MEAN CORPUSCULAR HEMOGLOBIN 29 pg (27-31); MEAN CORPUSCULAR HGB CONC 33 g/dL (33-37); MEAN PLATELET VOLUME 10.6 fl (7.4-10.4); MONO # 0.62 K/mm3 (0.20-0.80); PLATELET COUNT 141 K/mm3 (130-400); RED BLOOD COUNT 5.13 M/mm3 (4.10-5.30); RED CELL DISTRIBUTION WIDTH 14.4 % (11.5-14.5); WHITE BLOOD COUNT 4.8 K/mm3 (4.8-10.8)
== END ==
LOC: LAB 15:04
PROVIDERS: Internal Medicine
DX: C34.11 Malignant neoplasm of upper lobe, right bronchus or lung (principal)

== ENCOUNTER → 2023-01-12 | Outpatient (CLI) | payer BC ==
[2023-01-12 17:03] LABS: ALBUMIN 4.5 g/dL (3.4-4.8); POTASSIUM 3.9 mmol/L (3.5-5.1)
[2023-01-12 17:05] LABS: CALCIUM 9.9 mg/dL (8.3-10.5)
[2023-01-12 17:06] LABS: TOTAL PROTEIN 7.2 g/dL (6.2-8.1)
[2023-01-12 17:08] LABS: TOTAL BILIRUBIN 0.2 mg/dL (0.2-1.2)
== END ==
LOC: LAB 16:32
PROVIDERS: Internal Medicine
DX: C34.11 Malignant neoplasm of upper lobe, right bronchus or lung (principal)

== ENCOUNTER → 2023-02-09 | Outpatient (CLI) | payer BC ==
[2023-02-09 16:00] LABS: BASO # 0.02 K/mm3 (0.02-0.10); EOS # 0.28 K/mm3 (0.04-0.40); EOS % 4.1 % (1.0-5.0); HEMATOCRIT 44.6 % (37.0-47.0); HEMOGLOBIN 14.6 g/dL (12.5-16.0); MEAN CELL VOLUME 87 fl (78-100); MEAN CORPUSCULAR HEMOGLOBIN 29 pg (27-31); MEAN CORPUSCULAR HGB CONC 33 g/dL (33-37); MEAN PLATELET VOLUME 10.5 fl (7.4-10.4); MONO # 0.69 K/mm3 (0.20-0.80); NEU # 5.14 K/mm3 (1.40-6.50); PLATELET COUNT 147 K/mm3 (130-400); RED BLOOD COUNT 5.13 M/mm3 (4.10-5.30); RED CELL DISTRIBUTION WIDTH 14.5 % (11.5-14.5); WHITE BLOOD COUNT 6.8 K/mm3 (4.8-10.8)
[2023-02-09 16:12] LABS: ALBUMIN 4.5 g/dL (3.4-4.8); POTASSIUM 3.9 mmol/L (3.5-5.1)
[2023-02-09 16:13] LABS: CALCIUM 9.5 mg/dL (8.3-10.5)
[2023-02-09 16:16] LABS: TOTAL BILIRUBIN 0.2 mg/dL (0.2-1.2)
== END ==
LOC: LAB 15:41
PROVIDERS: Internal Medicine
DX: C34.11 Malignant neoplasm of upper lobe, right bronchus or lung (principal)

== ENCOUNTER → 2023-05-01 | Outpatient (CLI) | payer BC ==
[2023-05-01 10:02] LABS: HEMATOCRIT 45.1 % (37.0-47.0); HEMOGLOBIN 14.4 g/dL (12.5-16.0); MEAN CELL VOLUME 89 fl (78-100); MEAN CORPUSCULAR HEMOGLOBIN 29 pg (27-31); MEAN CORPUSCULAR HGB CONC 32 g/dL (33-37); MEAN PLATELET VOLUME 10.8 fl (7.4-10.4); PLATELET COUNT 154 K/mm3 (130-400); RED BLOOD COUNT 5.06 M/mm3 (4.10-5.30); RED CELL DISTRIBUTION WIDTH 15.7 % (11.5-14.5); WHITE BLOOD COUNT 4.8 K/mm3 (4.8-10.8)
[2023-05-01 10:24] LABS: ALBUMIN 4.7 g/dL (3.4-4.8)
[2023-05-01 10:25] LABS: CALCIUM 9.8 mg/dL (8.3-10.5)
[2023-05-01 10:27] LABS: TOTAL PROTEIN 7.3 g/dL (6.2-8.1)
[2023-05-01 10:28] LABS: TOTAL BILIRUBIN 0.4 mg/dL (0.2-1.2)
[2023-05-01 10:40] LABS: LYMPHOCYTE 11 % (20-51); MONOCYTE 13 % (3-10); NEUTROPHILS 68 % (42-75)
== END ==
LOC: LAB 09:40
PROVIDERS: Internal Medicine
DX: C34.11 Malignant neoplasm of upper lobe, right bronchus or lung (principal)

== ENCOUNTER → 2023-05-28 | Outpatient (CLI) | payer BC ==
[2023-05-28 11:56] LABS: HEMATOCRIT 43.6 % (37.0-47.0); HEMOGLOBIN 14.3 g/dL (12.5-16.0); MEAN CELL VOLUME 86 fl (78-100); MEAN CORPUSCULAR HEMOGLOBIN 28 pg (27-31); MEAN CORPUSCULAR HGB CONC 33 g/dL (33-37); MEAN PLATELET VOLUME 10.4 fl (7.4-10.4); PLATELET COUNT 156 K/mm3 (130-400); RED BLOOD COUNT 5.06 M/mm3 (4.10-5.30); RED CELL DISTRIBUTION WIDTH 14.2 % (11.5-14.5); WHITE BLOOD COUNT 4.6 K/mm3 (4.8-10.8)
[2023-05-28 13:17] LABS: LYMPHOCYTE 14 % (20-51); MONOCYTE 10 % (3-10); NEUTROPHILS 68 % (42-75)
[2023-05-28 13:23] LABS: ROULEAUX 1+
[2023-05-28 14:31] LABS: ALBUMIN 4.7 g/dL (3.4-4.8)
[2023-05-28 14:32] LABS: CALCIUM 9.5 mg/dL (8.3-10.5)
[2023-05-28 14:34] LABS: TOTAL PROTEIN 7.1 g/dL (6.2-8.1)
[2023-05-28 14:35] LABS: TOTAL BILIRUBIN 0.3 mg/dL (0.2-1.2)
== END ==
LOC: LAB 11:41
PROVIDERS: Internal Medicine
DX: C34.11 Malignant neoplasm of upper lobe, right bronchus or lung (principal)

== ENCOUNTER → 2023-08-21 | Outpatient (CLI) | payer BC ==
[2023-08-21 08:03] LABS: ALBUMIN 4.5 g/dL (3.4-4.8)
[2023-08-21 08:04] LABS: CALCIUM 9.8 mg/dL (8.3-10.5)
[2023-08-21 08:07] LABS: TOTAL BILIRUBIN 0.3 mg/dL (0.2-1.2)
== END ==
LOC: LAB 07:31
PROVIDERS: Internal Medicine
DX: C34.11 Malignant neoplasm of upper lobe, right bronchus or lung (principal)

== ENCOUNTER → 2023-09-18 | Outpatient (CLI) | payer BC ==
[2023-11-09 12:01] LABS: ALBUMIN 4.7 g/dL (3.4-4.8); CALCIUM 10.1 mg/dL (8.3-10.5); TOTAL BILIRUBIN 0.5 mg/dL (0.2-1.2); TOTAL PROTEIN 7.4 g/dL (6.2-8.1)
[2023-11-09 12:08] LABS: BASO # 0.01 K/mm3 (0.02-0.10); EOS # 0.29 K/mm3 (0.04-0.40); HEMATOCRIT 45.6 % (37.0-47.0); HEMOGLOBIN 15.1 g/dL (12.5-16.0); LYMPH# 0.55 K/mm3 (1.50-4.00); MEAN CELL VOLUME 86 fl (78-100); MEAN CORPUSCULAR HEMOGLOBIN 29 pg (27-31); MEAN CORPUSCULAR HGB CONC 33 g/dL (33-37); MEAN PLATELET VOLUME 10.6 fl (7.4-10.4); MONO # 0.73 K/mm3 (0.20-0.80); NEU # 4.27 K/mm3 (1.40-6.50); PLATELET COUNT 158 K/mm3 (130-400); RED CELL DISTRIBUTION WIDTH 14.6 % (11.5-14.5); WHITE BLOOD COUNT 5.9 K/mm3 (4.8-10.8)
== END ==
LOC: LAB 12:10
PROVIDERS: Internal Medicine
DX: C34.11 Malignant neoplasm of upper lobe, right bronchus or lung (principal)

== ENCOUNTER → 2023-11-17 | Outpatient (CLI) | payer BC ==
[2023-11-17 15:33] LABS: BASO # 0.03 K/mm3 (0.02-0.10); EOS # 0.24 K/mm3 (0.04-0.40); EOS % 4.4 % (1.0-5.0); HEMATOCRIT 46.4 % (37.0-47.0); HEMOGLOBIN 14.9 g/dL (12.5-16.0); LYMPH# 0.64 K/mm3 (1.50-4.00); MEAN CELL VOLUME 87 fl (78-100); MEAN CORPUSCULAR HEMOGLOBIN 28 pg (27-31); MEAN CORPUSCULAR HGB CONC 32 g/dL (33-37); MEAN PLATELET VOLUME 10.8 fl (7.4-10.4); MONO # 0.64 K/mm3 (0.20-0.80); NEU # 3.94 K/mm3 (1.40-6.50); PLATELET COUNT 155 K/mm3 (130-400); RED BLOOD COUNT 5.33 M/mm3 (4.10-5.30); RED CELL DISTRIBUTION WIDTH 14.7 % (11.5-14.5); WHITE BLOOD COUNT 5.5 K/mm3 (4.8-10.8)
[2023-11-17 15:43] LABS: ALBUMIN 4.8 g/dL (3.4-4.8)
[2023-11-17 15:44] LABS: CALCIUM 10.7 mg/dL (8.3-10.5)
[2023-11-17 15:46] LABS: TOTAL PROTEIN 7.4 g/dL (6.2-8.1)
[2023-11-17 16:04] LABS: TOTAL BILIRUBIN 0.4 mg/dL (0.2-1.2)
== END ==
LOC: LAB 15:02
PROVIDERS: Family Medicine
DX: E78.5 Hyperlipidemia, unspecified (principal); I10 Essential (primary) hypertension; E07.9 Disorder of thyroid, unspecified; E55.9 Vitamin D deficiency, unspecified; E66.9 Obesity, unspecified

== ENCOUNTER → 2023-12-15 | Outpatient (CLI) | payer BC ==
[2023-12-15 16:07] LABS: ALBUMIN 4.4 g/dL (3.4-4.8)
[2023-12-15 16:09] LABS: CALCIUM 9.7 mg/dL (8.3-10.5)
[2023-12-15 16:10] LABS: TOTAL PROTEIN 6.9 g/dL (6.2-8.1)
[2023-12-15 16:12] LABS: TOTAL BILIRUBIN 0.2 mg/dL (0.2-1.2)
== END ==
LOC: LAB 15:38
PROVIDERS: Internal Medicine
DX: C34.11 Malignant neoplasm of upper lobe, right bronchus or lung (principal)

== ENCOUNTER → 2024-01-12 | Outpatient (CLI) | payer BC ==
[2024-01-12 13:40] LABS: BASO # 0.02 K/mm3 (0.02-0.10); EOS # 0.33 K/mm3 (0.04-0.40); EOS % 5.3 % (1.0-5.0); HEMATOCRIT 44.3 % (37.0-47.0); HEMOGLOBIN 14.5 g/dL (12.5-16.0); LYMPH# 0.76 K/mm3 (1.50-4.00); MEAN CELL VOLUME 88 fl (78-100); MEAN CORPUSCULAR HEMOGLOBIN 29 pg (27-31); MEAN CORPUSCULAR HGB CONC 33 g/dL (33-37); MEAN PLATELET VOLUME 10.6 fl (7.4-10.4); MONO # 0.63 K/mm3 (0.20-0.80); NEU # 4.52 K/mm3 (1.40-6.50); PLATELET COUNT 149 K/mm3 (130-400); RED BLOOD COUNT 5.06 M/mm3 (4.10-5.30); RED CELL DISTRIBUTION WIDTH 14.6 % (11.5-14.5); WHITE BLOOD COUNT 6.3 K/mm3 (4.8-10.8)
== END ==
LOC: LAB 13:24
PROVIDERS: Internal Medicine
DX: C34.11 Malignant neoplasm of upper lobe, right bronchus or lung (principal)

== ENCOUNTER → 2024-05-10 | Outpatient (CLI) | payer BC ==
[~2024-05-10] MED LIST changes: +Gadoterate 20 ML VIAL IV ONE
== END ==
LOC: RAD 05-28 15:15
DX: C34.11 Malignant neoplasm of upper lobe, right bronchus or lung (principal)
CPT/HCPCS: A9575

== ENCOUNTER → 2024-05-10 | Outpatient (CLI) | payer BC ==
[~2024-05-10] MED LIST changes: -Gadoterate 20 ML VIAL IV ONE
--- NOTE | 2024-05-10 08:15 | NUR ---
PATIENT HERE FOR IV PLACEMENT AND LAB DRAW. INT PLACED TO RIGHT AC, TOLERATED WELL.
[2024-05-10 08:35] LABS: HEMATOCRIT 45.6 % (37.0-47.0); HEMOGLOBIN 15.1 g/dL (12.5-16.0); MEAN CELL VOLUME 86 fl (78-100); MEAN CORPUSCULAR HEMOGLOBIN 28 pg (27-31); MEAN CORPUSCULAR HGB CONC 33 g/dL (33-37); MEAN PLATELET VOLUME 11.1 fl (7.4-10.4); PLATELET COUNT 149 K/mm3 (130-400); RED BLOOD COUNT 5.32 M/mm3 (4.10-5.30); RED CELL DISTRIBUTION WIDTH 14.4 % (11.5-14.5); WHITE BLOOD COUNT 4.6 K/mm3 (4.8-10.8)
[2024-05-10 08:44] LABS: ALBUMIN 4.7 g/dL (3.4-4.8)
[2024-05-10 08:47] LABS: TOTAL PROTEIN 7.2 g/dL (6.2-8.1)
[2024-05-10 08:49] LABS: TOTAL BILIRUBIN 0.5 mg/dL (0.2-1.2)
[2024-05-10 09:00] LABS: LYMPHOCYTE 16 % (20-51); MONOCYTE 12 % (3-10); NEUTROPHILS 66 % (42-75)
== END ==
LOC: LAB 08:03
PROVIDERS: Internal Medicine
DX: C34.11 Malignant neoplasm of upper lobe, right bronchus or lung (principal)

== ENCOUNTER → 2024-05-10 | Outpatient (CLI) | payer BC | LOC: RAD 09:00 | DX: C34.11 Malignant neoplasm of upper lobe, right bronchus or lung (principal) ==

== ENCOUNTER → 2024-07-15 | Outpatient (CLI) | payer BC ==
[2024-07-15 08:55] LABS: HEMATOCRIT 44.6 % (37.0-47.0); HEMOGLOBIN 14.5 g/dL (12.5-16.0); MEAN CELL VOLUME 88 fl (78-100); MEAN CORPUSCULAR HEMOGLOBIN 28 pg (27-31); MEAN CORPUSCULAR HGB CONC 33 g/dL (33-37); MEAN PLATELET VOLUME 10.8 fl (7.4-10.4); PLATELET COUNT 150 K/mm3 (130-400); RED CELL DISTRIBUTION WIDTH 14.9 % (11.5-14.5); WHITE BLOOD COUNT 4.4 K/mm3 (4.8-10.8)
[2024-07-15 08:59] LABS: ALBUMIN 4.5 g/dL (3.4-4.8)
[2024-07-15 09:01] LABS: CALCIUM 9.7 mg/dL (8.3-10.5)
[2024-07-15 09:02] LABS: TOTAL PROTEIN 7.1 g/dL (6.2-8.1)
[2024-07-15 09:04] LABS: TOTAL BILIRUBIN 0.4 mg/dL (0.2-1.2)
[2024-07-15 09:30] LABS: LYMPHOCYTE 9 % (20-51); MONOCYTE 13 % (3-10); NEUTROPHILS 69 % (42-75)
== END ==
LOC: LAB 08:28
PROVIDERS: Internal Medicine
DX: C34.11 Malignant neoplasm of upper lobe, right bronchus or lung (principal)

== ENCOUNTER → 2024-07-29 | Outpatient (CLI) | payer BC ==
[~2024-07-29] MED LIST changes: +Gadoterate 20 ML VIAL IV ONE
== END ==
LOC: RAD 08:46
DX: M47.812 Spondylosis without myelopathy or radiculopathy, cervical region (principal); M48.02 Spinal stenosis, cervical region; M48.03 Spinal stenosis, cervicothoracic region; C34.11 Malignant neoplasm of upper lobe, right bronchus or lung
CPT/HCPCS: A9575